=== PATIENT | male | born 1955 | race Caucasian/White ===

== ENCOUNTER 2023-05-14 14:34 | Outpatient (AMB) | payer OTHER, SELFPAY ==
[2023-05-14 14:37] VITALS: BP 128/80; PULSE 93; O2SAT 97; BMI 27.8
--- NOTE | 2023-05-14 14:37 | MHC.OFFVIS ---
Intake Vital Signs 05/14/23 14:37 Height 5 ft 6 in Weight 172 lb 6 oz BMI 27.8 BP 128/80 Blood Pressure Location Rt brachial Position Sitting Pulse 93 Pulse Source Pulse Oximeter Pulse Oximetry (%) 97 Oxygen Delivery Method Room Air Intake Visit Reasons: NPV-Subdural Hematoma-confirmed Intake Note: Pt presents to the office today for a new patient visit for subdural Hematoma. Pt states he has episodes where he gets dry mouth, dizzy, disoriented,and short of breath.Pt is afraid of falling. He states he gets migrains and when he gets them he slurs his words. He also states he has cerebellum ataxia. Allergies No Known Allergies Allergy (Verified 05/14/23 14:39) HPI HPI Comments History of Present Illness Details 67y/o male with h/o cerebellar ataxia - diagnosed at age 1 , comes for neurology evaluation following a Subdural hematoma. He was followed up with neurologist all his life for his ataxia.He move [facility] about 8 years ago from [place] and has been seeing Dr. Strickland . He has h/o migraines for many years. He is on topirmate which helps his migraines. He had a MRI in Sep 2022 for increasing headaches and his cerebellar ataxia. It showed a subdural hematoma - he had right sided burrhole and evacuation done at [facility]. He was also started on Keppra 500mg bid. He reports persistent migraines, daily headaches, slurred speech, dizziness,vertigo tremors, ataxia . The headaches start in his neck and radiates to frontal, nausea, vomiting, photophobia, phonophobia, ? visual aura etc. He takes imitrex which helps.He has also tried rizatriptan, fioricet .He was also tried on baclofen and other muscle relaxants. He was also tried on gabapentin in the past with no response. Metoprolol was tried with no response. It can last 1-2 days .He reports migraines almost every day. He says he was tried on multiple medications.He ernst shad occipital nerve block which did not help. He was also seen by Dr. Guy in the past. [facility] Medical History Angina of effort Anxiety Bipolar 2 disorder BPH (benign prostatic hyperplasia) Carpal tunnel syndrome Cerebellar ataxia Cervicalgia Chronic migraine without aura CKD (chronic kidney disease) COPD (chronic obstructive pulmonary disease) Diabetes Diabetic neuropathy GERD (gastroesophageal reflux disease) GI bleed Glaucoma Hyperlipidemia Hypothyroidism Lumbar spondylosis Malignant melanoma Meniere disease Neurogenic claudication YUSRA and COPD overlap syndrome Osteoporosis PTSD (post-traumatic stress disorder) Schizoaffective disorder Spinal stenosis in cervical region Subdural hematoma, chronic Surgical History History of total right knee replacement Family History Mother Breast cancer Skin cancer Father Skin cancer Social History Household Members: Other Caregiver staying overnight: No Housing: Assisted Living Facility Do you presently have visiting nurse or other home services: Yes Alcohol intake: never Patient Tobacco Use Status: Never used Tobacco Review of Systems Neuro Reports Abnormal speech present Physical Exam Vital Signs: Last Vital Signs Pulse 93 05/14/23 14:37 BP 128/80 05/14/23 14:37 Pulse Ox 97 05/14/23 14:37 Oxygen Delivery Method Room Air 05/14/23 14:37 BMI result Body Mass Index 27.8 Const Orientation/consciousness: patient oriented x3 Eyes Pupils: Equal, round and reactive pupils present Neuro Other: slurred speech gait- off balance , ataxic with walker , weakness of lower extremities Neck- restricted range of motion with tightness in amos cervical muscles. General: patient oriented x3 and moves all extremities Cranial nerves: Yes Facial sensation intact/muscles of mastication intact, Yes Equal, round and reactive pupils present, Yes Bilaterally intact EOM present, Yes Nystagmus not present, Yes Normal facial strength present, Yes Midline tongue present and Yes Ability to bilaterally elevate shoulders present Speech: Abnormal speech present and Other speech findings present (Neuro) (dysarthria) Gait exam (Neuro): Ataxic gait present Deep tendon reflexes (DTR's): Right triceps reflex intensity grade: 1+, Left triceps reflex intensity grade: 1+, Rt Biceps (C5, C6): 1+, Left biceps reflex intensity grade: 1+, Right brachioradialis reflex intensity grade: 1+, Left brachioradialis reflex intensity grade: 1+, Right patellar reflex intensity grade: 3+ and Left patellar reflex intensity grade: 3+ Coordination: other (dysmetria amos ) Assessment & Plan Assessment & Plan (1) Chronic migraine without aura: Code(s): G43.709 - Chronic migraine without aura, not intractable, without status migrainosus (2) Cervicalgia: Code(s): M54.2 - Cervicalgia (3) Subdural hematoma, chronic: Code(s): I62.03 - Nontraumatic chronic subdural hemorrhage Orders: Orders MR head/brain wo con 05/14/23 I62.00 - Nontraumatic subdural hemorrhage, unspecified MR cervical spine wo con 05/14/23 R26.9 - Unspecified abnormalities of gait and mobility Medications: New rimegepant (Nurtec ODT) 75 mg PO Q OTHER DAY 15 tabs 2RF Coding Level of Care Code New Pt Level 4 (57357) Diagnoses Chronic migraine without aura G43.709 Cervicalgia M54.2 Subdural hematoma, chronic I62.03
== END 2023-05-14 15:33 | disposition home or self-care (01) ==
PROVIDERS: Visit Provider Psychiatry & Neurology Neurology
DX: G43.709 Chronic migraine without aura, not intractable, without status migrainosus (principal); M54.2 Cervicalgia; I62.03 Nontraumatic chronic subdural hemorrhage
CPT/HCPCS: 99204

== ENCOUNTER → 2023-05-14 14:34 | Outpatient (BNVA) | payer OTHER, SELFPAY | PROVIDERS: Visit Provider Psychiatry & Neurology Neurology | DX: I62.03 Nontraumatic chronic subdural hemorrhage (principal); G43.709 Chronic migraine without aura, not intractable, without status migrainosus; M54.2 Cervicalgia | CPT/HCPCS: 99202 ==

== ENCOUNTER 2023-10-15 11:26 | Outpatient (AMB) | payer OTHER, SELFPAY ==
--- NOTE | 2023-10-15 11:28 | A.OFFVIS_ITS ---
Intake Vital Signs 3 10/15/23 11:34 Height 5 ft 6 in Weight 170 lb 2 oz BMI 27.5 BP 138/77 Blood Pressure Location Rt brachial Position Sitting Pulse 83 Pulse Source Pulse Oximeter Pulse Oximetry (%) 96 Oxygen Delivery Method Room Air Intake Visit Reasons: Cervicalgia Intake Note: Pain today 06/26 Paper Maker Required: No Accompanied by: Self / Same As Patient Allergies No Known Allergies Allergy (Verified 10/15/23 11:35) HPI Cervicalgia 2 HPI0 Details Patient is a pleasant 68 years old male with complex medical and mental health history, including cerebellar ataxia (diagnosed at age 1), subdural hematoma 2022 [place] [facility] diabetes, diabetic neuropathy, chronic migraine headaches, vertigo, slurred speech, memory impairments, cervical spinal stenosis and arthritis, presents today for initial evaluation of chronic neck pain. Patient reports worsening neck pain with radiation to both shoulders and into his arm and hands with intermittent numbness and tingling in his hands, worse on the right side. Left lateral rotation and flexion increases his right sided neck pain and causes significant muscle stiffness and spasms, whereas cervical extension causes him dizziness, pain, disorientation and shooting pain into his right shoulder and right arm and hand. Patient was referred to us by our Neurology group. Most recent cervical spine MRI 05/2023 showed multiple degenerative changes throughout the cervical spine most pronounced at C6-C7 where there is a moderate spinal canal stenosis. No cord signal abnormality. Severe foraminal stenosis on the right at C4-C5, bilaterally at C5-C6 and on the left at C6-C7 secondary to facet arthropathy and uncovertebral spurring. Patient reports he moved from [place] to [place] about 9 years ago and has been seeing Dr. Strickland for migraines and cerebellar ataxia. He has been in multiple courses of physical therapy for the past 9 years. Patient reports he was recommended by providers at our [facility] to undergo course of PT prior to surgical discussion. He states new course PT at his Assisted Living residence at [facility]. Patient reports back injections in [place] with various benefit. Patient is hesitant towards interventional treatments at this time and is interested in Acupuncture referral. Patient reports massaging right sided neck pain and applying pressure partially alleviates his pain. Denies any fever, chills, weight loss, bladder or bowel dysfunction or saddle anesthesia. Ambulates with ataxic gait with use of walker. Location Neck pain, worse on the right side, radiates to both shoulder Duration Chronic pain most of patient's life Characteristics of symptom or complaint Headaches, numbness, throbbing, spasming, shooting, radiating, stiffness Aggravating or associated factors Movements, walking, cold weather, stress, illness Relieving factors Massage, accupressure, Imitrex, Tylenol, oxycodone Treatment Multiple PT, back injections, occipital nerve blocks PFSH Medical History Glaucoma Neurogenic claudication Spinal stenosis in cervical region Osteoporosis YUSRA and COPD overlap syndrome Diabetic neuropathy Meniere disease COPD (chronic obstructive pulmonary disease) Hypothyroidism Hyperlipidemia Malignant melanoma GERD (gastroesophageal reflux disease) GI bleed Lumbar spondylosis Diabetes CKD (chronic kidney disease) Cerebellar ataxia Carpal tunnel syndrome BPH (benign prostatic hyperplasia) PTSD (post-traumatic stress disorder) Schizoaffective disorder Bipolar 2 disorder Angina of effort Anxiety Subdural hematoma, chronic Cervicalgia Chronic migraine without aura Surgical History History of total right knee replacement Family History Mother Breast cancer Skin cancer Father Skin cancer Social History Household Members: Other Caregiver staying overnight: No Housing: Assisted Living Facility Do you presently have visiting nurse or other home services: Yes Alcohol intake: never Patient Tobacco Use Status: Never used Tobacco Review of Systems Const All systems reviewed & are unremarkable except as noted in HPI and below Reports as per HPI, Denies body aches, Denies chills, Reports difficulty sleeping, Denies fever(s), Reports headache(s), Denies malaise, Denies night sweats and Reports weakness ENT Reports vertigo, Reports dizziness, Reports headache(s), Reports neck pain, Denies sinus pain and Denies sore throat Musc Reports as per HPI, Reports back pain, Reports arthralgias, Reports neck pain, Reports numbness, Reports radiating pain into limb, Reports stiffness and Reports tingling Neuro Reports Neuro-related abnormal movements (cerebellar ataxia), Reports burning sensations, Reports confusion, Reports vertigo, Reports dizziness, Reports headache(s), Reports numbness, Reports radicular pain, Reports tingling, Reports paresthesias and Reports weakness Psych Reports confusion, Denies panic attacks, Denies visual hallucinations, Denies tactile hallucinations, Denies homicidal ideation and Denies suicidal ideation Physical Exam Vital Signs: Last Vital Signs Pulse 83 10/15/23 11:34 BP 138/77 10/15/23 11:34 Pulse Ox 96 10/15/23 11:34 Oxygen Delivery Method Room Air 10/15/23 11:34 BMI result Body Mass Index 27.5 General: Appears afebrile. Alert and oriented. Mood and affect appropriate. Dysarthria Follows and participates in conversation appropriately. Respiratory effort is unlabored. No cough. Able to transition from sit to stand, ataxic gait. Uses walker with seat. Const General: confusion Orientation/consciousness: confusion Neck Other: Patient with decreased cervical ROM in all planes/especially with left lateral rotation which increases his right sided neck pain. Reports increased pain with cervical extension and flexion. Spurling compression test equivocal. Pain is unchanged by Spurling maneuver with retraction. Elvey's tension test positive bilaterally, with radiation of pain from neck to wrist and hand on the right. Lhermitte's test was negative. DTR intact, +1 and symmetrical. Patient demonstrated 5/5 motor strength of bilateral upper extremities. 2 + radial pulses. No paravertebral tenderness over facet joint on affected side Neck: Yes no lymphadenopathy, Yes supple, No anterior neck swelling, Yes no JVD and No prominent dorsocervical fat pad Back/Spine/Pelvis Cervical Spine: No Lhermitte's sign positive, loss of normal cervical lordosis, cervical muscular tenderness, pain with cervical ROM, No Cervical spine scars present, cervical spasm and No Cervical spine tenderness Thoracic/Lumbar Spine: thoracic and lumbar spine normal to inspection, thoraco- lumbar ROM limited, No thoracic spinal tenderness and No lumbar spinal tenderness Neuro General: moves all extremities, Normal light touch and pain sensation and confusion Gait exam (Neuro): Ataxic gait present and Assistive device used Motor exam (neuro): no tremor noted Results Reviewed Results Reviewed: Assessment & Plan Assessment & Plan (1) Spinal stenosis in cervical region: Code(s): M48.02 - Spinal stenosis, cervical region (2) Cervicalgia: Code(s): M54.2 - Cervicalgia (3) Cervical spondylosis: Code(s): M47.812 - Spondylosis without myelopathy or radiculopathy, cervical region (4) Muscle spasms of neck: Code(s): M62.838 - Other muscle spasm Plan 1. Patient is starting PT and home exercise program for neck pain with radicular symptoms. This is being set up at his Assisted Living place by [employer]. If no relief, he will follow up with [facility] for cervical spinal stenosis related pain. 2. Discussed interventional treatments for facetogenic neck pain. Patient is not candidate for Sprint PNS trial due to his complex medical conditions as well as memory impairments. He is interested in Acupuncture Referral prior to injections for potential RFA procedure. Script provided. All questions and concerns have been answered and patient agreed with the plan. Follow up as needed. Orders: Referrals 2 Neurosurgery Referral M48.02 - Spinal stenosis, cervical region Acupuncture Referral M47.812 - Spondylosis without myelopathy or radiculopathy, cervical region, M48.02 - Spinal stenosis, cervical region, M54.2 - Cervicalgia, M62.838 - Other muscle spasm Medications: New 2 camphor-methyl salicyl-menthol 3.1-15-10 % (Salonpas Deep Relieving) 1 ea topical DAILY 30 days 78 grams 2RF pain M47.812 - Spondylosis without myelopathy or radiculopathy, cervical region, M48.02 - Spinal stenosis, cervical region, M62.838 - Other muscle spasm Coding Level of Care Code New Pt Level 4 (88950) Diagnoses Spinal stenosis in cervical region M48.02 Cervicalgia M54.2 Cervical spondylosis M47.812 Muscle spasms of neck M62.838
[2023-10-15 11:34] VITALS: BP 138/77; PULSE 83; O2SAT 96; BMI 27.5
== END 2023-10-15 12:09 | disposition home or self-care (01) ==
PROVIDERS: PCP Internal Medicine Rheumatology; Visit Provider Nurse Practitioner Family
DX: M48.02 Spinal stenosis, cervical region (principal); M54.2 Cervicalgia; M47.812 Spondylosis without myelopathy or radiculopathy, cervical region; M62.838 Other muscle spasm
CPT/HCPCS: 99204

== ENCOUNTER → 2023-10-15 11:26 | Outpatient (BNVA) | payer OTHER, SELFPAY | PROVIDERS: PCP Internal Medicine Rheumatology; Visit Provider Nurse Practitioner Family | DX: M48.02 Spinal stenosis, cervical region (principal); M54.2 Cervicalgia; M47.812 Spondylosis without myelopathy or radiculopathy, cervical region; M62.838 Other muscle spasm | CPT/HCPCS: 99202 ==

== ENCOUNTER 2023-11-09 10:40 | Outpatient (AMB) | payer OTHER, SELFPAY ==
--- NOTE | 2023-11-09 11:14 | A.SPINEOV_ITS ---
Intake Intake Visit Reasons: spinal stenosis Intake Note: Mr. Mcconnell is here today c/o neck pain. MRI done at [facility]. Principal Network Engineer Required: No Allergies No Known Allergies Allergy (Verified 10/15/23 11:35) Assessment & Plan Assessment & Plan (1) Cervical spondylosis: Code(s): M47.812 - Spondylosis without myelopathy or radiculopathy, cervical region (2) Muscle spasms of neck: Code(s): M62.838 - Other muscle spasm Plan Dear Maribell, Thank you for referring MR Mcconnell to our office today. He has a 68-year-old gentleman with a history of chronic neck pain. Recently evaluated at the [facility] in September of this year and felt not to be a surgical candidate. His main complaints are centralized neck pain on the upper cervical region to the right side of the neck. Also will complain of intermittent arm pains bilaterally worse on the right. He is not a great historian and has a lot of difficulty giving me details about things that have gone on related to his neck. At some point he was living in [place] and underwent injections. He has not sure if these really did much. He takes Tylenol 3 times a day but is very forgetful about his medications so he has not sure what he is taking right now. He has a history of physical therapy and chiropractic but did not report that these things did much. Does report that the pain to me disabling at times making his right arm difficult to move. He also reports overlapping history of neuropathy in his arms as well. He was sent today for evaluation with an MRI showing multilevel degenerative disc disease. PMH: I was able to look at his [place] health records, he has an extensive history including carotid artery aneurysm, hypertension, hypertension, hypothyroidism, type 2 diabetes. He has no recent A1c and can not recall what his most recent numbers were. The last time it was done was a few years ago he tells me. History of diabetic neuropathy, GERD, irritable bowel syndrome, diverticulosis, sleep apnea, bipolar, subdural hematoma with craniotomy evacuation last year, Meniere's disease, allergic rhinitis, pulmonary nodules, melanoma, GI bleed, cerebellar ataxia Social hx: He does not smoke, denies any use of drugs or alcohol Medications: A list found in the [employer] system includes Actos, Flomax, Seroquel, Vasotec, Glucophage, Proscar, Topamax, Trileptal, albuterol, denosumab injection, lisinopril, pantoprazole, Flomax, Keppra, Tylenol, Lipitor, Synthroid , meclizine, dicyclomine, iron Allergies: No drug allergies reported Physical exam: He is in a wheelchair, he tells me this is due to cerebellar ataxia which he has had is a and has had difficulty walking steadily through the years. No recent changes with this. He is able to demonstrate good strength of bilateral upper extremities with absent reflexes bilaterally, no Downs's sign. Imaging review: He has a cervical MRI done at [facility] about 6 or 7 months ago showing multilevel degenerative disc disease with varying degrees of foraminal stenosis throughout the cervical spine. No cord compression. Impression: 60-year-old male diabetic with chronic neck pain on the upper cervical area on the right side with intermittent arm pains which can be disabling at times. Has multilevel degenerative disc disease with foraminal narrowing at multiple levels of the cervical spine including C5-6 and C6-7. The patient was just seen about a month ago at [facility] in Dr.Mc Valverde office and not felt to be a surgical candidate. His main complaint is neck pain and given that he has multilevel degenerative disc disease these patients are the hardest to treat surgically as it is difficult to know where the symptoms are coming from. He does have a component of arm pain which is more helpful in localizing some of the symptoms to C5-6 C6-7 area, but I would be very cautious about pursuing surgery with this gentleman given his host of medical problems and the lack of clarity with where he stands with regard to his A1c in his overall medical health. He has not a great historian. I would like to get a repeat MRI as his current 1 is 6-month-old and would be helpful to know if anything is changing. I would also like to know where he had the injections don e in [place] so we can be clear what treatment has already been done. Obviously would be a much simpler to try to treat this non operatively with things like injections etc.. Once he has the repeat MRI done, he is going to find out where he had the injections done and we can get those records and see him back. Thank you for allowing us to care for your patient. The total time spent with this visit with this patient was 45 minutes reviewing history, physical exam, cervical MRI imaging review, and implementation of treatment plan or further diagnostic testing Freddy Patiño MD,PhD [facility] Coding Level of Care Code New Pt Level 4 (36929) Diagnoses Cervical spondylosis M47.812 Muscle spasms of neck M62.838
== END 2023-11-09 11:38 | disposition home or self-care (01) ==
PROVIDERS: PCP Internal Medicine Rheumatology; Referring Provider Nurse Practitioner Family; Visit Provider Physician Assistant
DX: M47.812 Spondylosis without myelopathy or radiculopathy, cervical region (principal); M62.838 Other muscle spasm
CPT/HCPCS: 99204

== ENCOUNTER → 2023-11-09 10:40 | Outpatient (BNVA) | payer OTHER, SELFPAY | PROVIDERS: PCP Internal Medicine Rheumatology; Visit Provider Physician Assistant | DX: M47.812 Spondylosis without myelopathy or radiculopathy, cervical region (principal); M62.838 Other muscle spasm | CPT/HCPCS: 99202 ==

== ENCOUNTER 2024-01-08 16:06 | Outpatient (AMB) | payer OTHER, SELFPAY ==
--- NOTE | 2024-01-08 16:17 | MHC.OFFVIS ---
Vital Signs 01/08/24 16:18 Height 5 ft 6 in Weight 164 lb 6 oz BMI 26.5 BP 130/78 Blood Pressure Location Rt brachial Position Sitting Respiration 16 Pulse 72 Pulse Source Palpation Intake Visit Reasons: f/u for Subdural Hematoma- CONF Intake Note: Pt presents for 8 month follow up for subdural hematoma. Net Web Application Developer Required: No Allergies No Known Allergies Allergy (Verified 01/08/24 16:18) PFS Medical History Glaucoma Neurogenic claudication Spinal stenosis in cervical region Osteoporosis YUSRA and COPD overlap syndrome Diabetic neuropathy Meniere disease COPD (chronic obstructive pulmonary disease) Hypothyroidism Hyperlipidemia Malignant melanoma GERD (gastroesophageal reflux disease) GI bleed Lumbar spondylosis Diabetes CKD (chronic kidney disease) Cerebellar ataxia Carpal tunnel syndrome BPH (benign prostatic hyperplasia) PTSD (post-traumatic stress disorder) Schizoaffective disorder Bipolar 2 disorder Angina of effort Anxiety Subdural hematoma, chronic Cervicalgia Chronic migraine without aura Surgical History History of total right knee replacement Family History Mother Breast cancer Skin cancer Father Skin cancer Social History Household Members: Other Caregiver staying overnight: No Housing: Assisted Living Facility Do you presently have visiting nurse or other home services: Yes Alcohol intake: never Patient Tobacco Use Status: Never used Tobacco Coding
[2024-01-08 16:18] VITALS: BP 130/78; PULSE 72; RESP 16; BMI 26.5
--- NOTE | 2024-01-08 16:24 | MHC.OFFVIS ---
Vital Signs 01/08/24 16:18 01/08/24 16:27 Height 5 ft 6 in Weight 164 lb 6 oz BMI 26.5 26.5 BP 130/78 Blood Pressure Location Rt brachial Position Sitting Respiration 16 Pulse 72 Pulse Source Palpation Intake Visit Reasons: f/u for Subdural Hematoma- CONF Allergies No Known Allergies Allergy (Verified 01/08/24 16:18) Medication List - Last Reconciled 01/08/24 by Heavenly Fleming MD acetaminophen (Tylenol Extra Strength) 1,000 mg PO TID PRN albuterol sulfate 90 mcg/actuation 3 inhalations inhalation .q1-3 atorvastatin 40 mg PO DAILY camphor-methyl salicyl-menthol 3.1-15-10 % (Salonpas Deep Relieving) 1 ea topical DAILY 30 days cholecalciferol (vitamin D3) 10 mcg PO DAILY cyanocobalamin (vitamin B-12) 1,000 mcg PO DAILY denosumab (Prolia) 60 mg subcut [id number] dicyclomine 10 mg PO TID ferrous gluconate 324 mg PO DAILY finasteride 5 mg PO DAILY vspssxxulcw-fiqlpobsa-wgdzdiiq 100-62.5-25 mcg (Trelegy Ellipta) 1 inh inhalation DAILY latanoprost 0.005% 1 drp ophthalmic (eye) DAILY levetiracetam 500 mg PO Q12H levothyroxine 25 mcg PO DAILY lisinopril 20 mg PO DAILY magnesium oxide 400 mg PO DAILY meclizine 12.5 mg PO TID PRN metformin 1,000 mg PO BID oxcarbazepine 150 mg PO DAILY pantoprazole 40 mg PO BID pioglitazone 30 mg PO DAILY promethazine 12.5 mg PO BID quetiapine 300 mg PO BEDTIME rimegepant (Nurtec ODT) 75 mg PO Q OTHER DAY tamsulosin 0.4 mg PO BEDTIME topiramate 200 mg PO BEDTIME trazodone 50 mg PO BEDTIME PRN venlafaxine ER 150 mg PO DAILY HPI Comments Details: 68y/o male with h/o cerebellar ataxia - diagnosed at age 1 , comes for follow up. He was followed up with neurologist all his life for his ataxia.He moved to [place] about 8 years ago from [place] and has been seeing Dr. Strickland . He has h/o migraines for many years.His migraines have decreased to 1-2 /week and responds to imitrex. He is on topiramate which helps his migraines. He had a MRI in Sep 2022 for increasing headaches and his cerebellar ataxia. It showed a subdural hematoma - he had right sided burrhole and evacuation done at [facility]. He was also started on Keppra 500mg bid. The headaches start in his neck and radiates to frontal, nausea, vomiting, photophobia, phonophobia, ? visual aura etc. He had a MRI in Sep 2022 for increasing headaches and his cerebellar ataxia. It showed a subdural hematoma - he had right sided burrhole and evacuation done at [facility]. He was also started on Keppra 500mg bid. He was seen by Neuro spine for cervical spondylosis and Dr. Parks- not a surgical candidate He did not bring his medication list and i am unclear if he is on levetiracetam [facility] Medical History Glaucoma Neurogenic claudication Spinal stenosis in cervical region Osteoporosis YUSRA and COPD overlap syndrome Diabetic neuropathy Meniere disease COPD (chronic obstructive pulmonary disease) Hypothyroidism Hyperlipidemia Malignant melanoma GERD (gastroesophageal reflux disease) GI bleed Lumbar spondylosis Diabetes CKD (chronic kidney disease) Cerebellar ataxia Carpal tunnel syndrome BPH (benign prostatic hyperplasia) PTSD (post-traumatic stress disorder) Schizoaffective disorder Bipolar 2 disorder Angina of effort Anxiety Subdural hematoma, chronic Cervicalgia Chronic migraine without aura Surgical History History of total right knee replacement Family History Mother Breast cancer Skin cancer Father Skin cancer Social History Household Members: Other Caregiver staying overnight: No Housing: Assisted Living Facility Do you presently have visiting nurse or other home services: Yes Alcohol intake: never Patient Tobacco Use Status: Never used Tobacco Review of Systems Neuro Reports Abnormal speech present Physical Exam Vital Signs: Last Vital Signs Pulse 72 01/08/24 16:18 Resp 16 01/08/24 16:18 BP 130/78 01/08/24 16:18 BMI result Body Mass Index 26.5 Const Orientation/consciousness: patient oriented x3 Eyes Pupils: Equal, round and reactive pupils present Neuro Other: slurred speech gait- off balance , ataxic with walker , weakness of lower extremities Neck- restricted range of motion with tightness in amos cervical muscles. General: patient oriented x3 and moves all extremities Cranial nerves: Yes Facial sensation intact/muscles of mastication intact, Yes Equal, round and reactive pupils present, Yes Bilaterally intact EOM present, Yes Nystagmus not present, Yes Normal facial strength present, Yes Midline tongue present and Yes Ability to bilaterally elevate shoulders present Speech: Abnormal speech present and Other speech findings present (Neuro) (dysarthria) Gait exam (Neuro): Ataxic gait present Coordination: other (dysmetria amos ) Assessment & Plan Assessment & Plan (1) Chronic migraine without aura: Comment: stable now Code(s): G43.709 - Chronic migraine without aura, not intractable, without status migrainosus Category: Medical (2) Cervicalgia: Comment: related to cervical spondylosis Code(s): M54.2 - Cervicalgia Category: Medical (3) Subdural hematoma, chronic: Comment: resolved Code(s): I62.03 - Nontraumatic chronic subdural hemorrhage Category: Medical Plan Continue imitrex- he call me with his updated med list Continue topiramate 200mg qhs It is unclear if he is on keppra - i will obtain his updated list- stop keppra which was added prophylactically for SDH. Coding Level of Care Code New Pt Level 4 (70279) Diagnoses Chronic migraine without aura G43.709 Cervicalgia M54.2 Subdural hematoma, chronic I62.03
[2024-01-08 16:27] VITALS: BMI 26.5
== END 2024-01-08 16:38 | disposition home or self-care (01) ==
PROVIDERS: PCP Internal Medicine Rheumatology; Visit Provider Psychiatry & Neurology Neurology
DX: G43.709 Chronic migraine without aura, not intractable, without status migrainosus (principal); M54.2 Cervicalgia; I62.03 Nontraumatic chronic subdural hemorrhage
CPT/HCPCS: 99214

== ENCOUNTER → 2024-01-08 16:06 | Outpatient (BNVA) | payer OTHER, SELFPAY | PROVIDERS: PCP Internal Medicine Rheumatology; Visit Provider Psychiatry & Neurology Neurology | DX: G43.709 Chronic migraine without aura, not intractable, without status migrainosus (principal); M54.2 Cervicalgia; I62.03 Nontraumatic chronic subdural hemorrhage | CPT/HCPCS: 99212 ==

== ENCOUNTER 2024-06-17 08:27 | Outpatient (AMB) | payer OTHER, SELFPAY ==
--- NOTE | 2024-06-17 08:33 | A.OFFVIS_ITS ---
Vital Signs 06/17/24 08:34 Height 5 ft 6 in Weight 165 lb 6 oz BMI 26.7 BP 110/70 Blood Pressure Location Rt brachial Position Sitting Respiration 16 Pulse 89 Pulse Source Pulse Oximeter Pulse Oximetry (%) 99 Oxygen Delivery Method Room Air Intake Visit Reasons: Follow up Intake Note: Pt presents tot he office for a 6 month follow up for subdural hematoma. Senior Program Manager Required: No Allergies No Known Allergies Allergy (Verified 06/17/24 08:33) Medication List - Last Reconciled 06/17/24 by Heavenly Fleming MD acetaminophen (Tylenol Extra Strength) 1,000 mg PO TID PRN albuterol sulfate 90 mcg/actuation 3 inhalations inhalation .q1-3 atorvastatin 40 mg PO DAILY camphor-methyl salicyl-menthol 3.1-15-10 % (Salonpas Deep Relieving) 1 ea topi keith DAILY 30 days cholecalciferol (vitamin D3) 10 mcg PO DAILY cyanocobalamin (vitamin B-12) 1,000 mcg PO DAILY denosumab (Prolia) 60 mg subcut [id number] dicyclomine 10 mg PO TID ferrous gluconate 324 mg PO DAILY finasteride 5 mg PO DAILY mlezjbvnbss-momjeblgl-huiwuybr 100-62.5-25 mcg (Trelegy Ellipta) 1 inh inhalation DAILY latanoprost 0.005% 1 drp ophthalmic (eye) DAILY levetiracetam 500 mg PO Q12H levothyroxine 25 mcg PO DAILY lisinopril 20 mg PO DAILY magnesium oxide 400 mg PO DAILY meclizine 12.5 mg PO TID PRN metformin 1,000 mg PO BID oxcarbazepine 150 mg PO DAILY pantoprazole 40 mg PO BID pioglitazone 30 mg PO DAILY promethazine 12.5 mg PO BID quetiapine 300 mg PO BEDTIME tamsulosin 0.4 mg PO BEDTIME topiramate 200 mg PO BEDTIME trazodone 50 mg PO BEDTIME PRN venlafaxine ER 150 mg PO DAILY HPI Comments Details: 68y/o male with h/o cerebellar ataxia - diagnosed at age 1 , comes for follow up. He came alone for the visit today . He says he has brain fog and is not able to provide history today.He has multiple falls and is concerned about a rebleed. He reports daily headaches History from initial visit-He was followed up with neurologist all his life for his ataxia.He moved to [place] about 8 years ago from [place] and has been seeing Dr. Strickland . He has h/o migraines for many years.His migraines have decreased to 1-2 /week and responds to imitrex. He is on topiramate which helps his migraines. He had a MRI in Sep 2022 for increasing headaches and his cerebellar ataxia. It showed a subdural hematoma - he had right sided burrhole and evacuation done at [facility]. He was also started on Keppra 500mg bid. The headaches start in his neck and radiates to frontal, nausea, vomiting, photophobia, phonophobia, ? visual aura etc. He was seen by Neuro spine for cervical spondylosis and Dr. Parks- not a surgical candidate He did not bring his medication list and i am unclear if he is on levetiracetam [facility] Medical History Glaucoma Neurogenic claudication Spinal stenosis in cervical region Osteoporosis YUSRA and COPD overlap syndrome Diabetic neuropathy Meniere disease COPD (chronic obstructive pulmonary disease) Hypothyroidism Hyperlipidemia Malignant melanoma GERD (gastroesophageal reflux disease) GI bleed Lumbar spondylosis Diabetes CKD (chronic kidney disease) Cerebellar ataxia Carpal tunnel syndrome BPH (benign prostatic hyperplasia) PTSD (post-traumatic stress disorder) Schizoaffective disorder Bipolar 2 disorder Angina of effort Anxiety Subdural hematoma, chronic Cervicalgia Chronic migraine without aura Surgical History History of total right knee replacement Family History Mother Breast cancer Skin cancer Father Skin cancer Social History Household Members: Other Caregiver staying overnight: No Housing: Assisted Living Facility Do you presently have visiting nurse or other home services: Yes Alcohol intake: never Patient Tobacco Use Status: Never used Tobacco Review of Systems Neuro Reports Abnormal speech present Physical Exam Vital Signs: Last Vital Signs Pulse 89 06/17/24 08:34 Resp 16 06/17/24 08:34 BP 110/70 06/17/24 08:34 Pulse Ox 99 10/01/24 08:34 Oxygen Delivery Method Room Air 10/01/24 08:34 BMI result Body Mass Index 26.7 Const Orientation/consciousness: patient oriented x3 Eyes Pupils: Equal, round and reactive pupils present Neuro Other: slurred speech gait- off balance , ataxic with walker , weakness of lower extremities Neck- restricted range of motion with tightness in amos cervical muscles. General: patient oriented x3 and moves all extremities Cranial nerves: Yes Facial sensation intact/muscles of mastication intact, Yes Equal, round and reactive pupils present, Yes Bilaterally intact EOM present, Yes Nystagmus not present, Yes Normal facial strength present, Yes Midline t ongue present and Yes Ability to bilaterally elevate shoulders present Speech: Abnormal speech present and Other speech findings present (Neuro) (dysarthria) Gait exam (Neuro): Ataxic gait present Coordination: other (dysmetria amos ) Assessment & Plan Assessment & Plan (1) Chronic migraine without aura: Code(s): G43.709 - Chronic migraine without aura, not intractable, without status migrainosus Category: Medical Qualifiers: Status migrainosus presence: without status migrainosus Intractability: intractable Qualified Code(s): G43.719 - Chronic migraine without aura, intractable, without status migrainosus (2) Cervicalgia: Comment: related to cervical spondylosis Code(s): M54.2 - Cervicalgia Category: Medical (3) Subdural hematoma, chronic: Comment: resolved Code(s): I62.03 - Nontraumatic chronic subdural hemorrhage Category: Medical Plan Continue imitrex- he call me with his updated med list Continue topiramate 200mg qhs continue levetiracetam 500mg bid MRI brain - urgent to r/o rebleed . Patient reports increased headaches and multiple falls due to ataxia Orders: Orders MR head/brain wo con Today S06.5XAA - Traumatic subdural hemorrhage with loss of consciousness status unknown, initial encounter Coding Level of Care Code Est Pt Level 4 (92308) Complex EM visit Add On G2211 Diagnoses Intractable chronic migraine without aura and without status migrainosus G43.719 Status migrainosus presence: without status migrainosus Intractability: intractable Cervicalgia M54.2 Subdural hematoma, chronic I62.03
[2024-06-17 08:34] VITALS: BP 110/70; PULSE 89; RESP 16; O2SAT 99; BMI 26.7
== END 2024-06-17 09:05 | disposition home or self-care (01) ==
PROVIDERS: PCP Internal Medicine Rheumatology; Visit Provider Psychiatry & Neurology Neurology
DX: G43.719 Chronic migraine without aura, intractable, without status migrainosus (principal); M54.2 Cervicalgia; I62.03 Nontraumatic chronic subdural hemorrhage
CPT/HCPCS: 99214; G2211

== ENCOUNTER → 2024-06-17 08:27 | Outpatient (BNVA) | payer OTHER, SELFPAY | PROVIDERS: PCP Internal Medicine Rheumatology; Visit Provider Psychiatry & Neurology Neurology | DX: G43.719 Chronic migraine without aura, intractable, without status migrainosus (principal); M54.2 Cervicalgia; I62.03 Nontraumatic chronic subdural hemorrhage | CPT/HCPCS: 99212 ==

== ENCOUNTER 2025-04-28 13:30 | Outpatient (AMB) | payer OTHER, SELFPAY ==
[2025-04-28 13:33] VITALS: BP 106/70; PULSE 81; O2SAT 96
--- NOTE | 2025-04-28 13:33 | A.OFFVIS_ITS ---
Vital Signs 04/28/25 13:33 Height 5 ft 6 in BP 106/70 Blood Pressure Location Rt brachial Position Sitting Pulse 81 Pulse Source Pulse Oximeter Pulse Oximetry (%) 96 Oxygen Delivery Method Room Air Intake Visit Reasons: 1 yr follow up (Ins Auth is attached) Intake Note: Follow up care Merchandising Coordinator Required: No Accompanied by: Self / Same As Patient Allergies No Known Allergies Allergy (Verified 04/28/25 13:37) Medication List - Last Reconciled 04/28/25 by Heavenly Fleming MD acetaminophen (Tylenol Extra Strength) 1,000 mg PO TID PRN albuterol sulfate 90 mcg/actuation 3 inhalations inhalation .q1-3 atorvastatin 40 mg PO DAILY camphor-methyl salicyl-menthol 3.1-15-10 % (Salonpas Deep Relieving) 1 ea topical DAILY 30 days cholecalciferol (vitamin D3) 10 mcg PO DAILY cyanocobalamin (vitamin B-12) 1,000 mcg PO DAILY denosumab (Prolia) 60 mg subcut [id number] dicyclomine 10 mg PO TID ferrous gluconate 324 mg PO DAILY finasteride 5 mg PO DAILY zyytkamffgz-xmivqchpb-dihbkuhx 100-62.5-25 mcg (Trelegy Ellipta) 1 inh inhalation DAILY levetiracetam 500 mg PO Q12H levothyroxine 25 mcg PO DAILY lisinopril 20 mg PO DAILY magnesium oxide 400 mg PO DAILY meclizine 12.5 mg PO TID PRN metformin 1,000 mg PO BID oxcarbazepine 150 mg PO DAILY pantoprazole 40 mg PO BID pioglitazone 30 mg PO DAILY promethazine 12.5 mg PO BID quetiapine 300 mg PO BEDTIME sumatriptan succinate take 1 tab at onset of headache; if no relief, may repeat 1 tab after at least 2 hrs; max = 2 tabs/24 hrs PO tamsulosin 0.4 mg PO BEDTIME topiramate 200 mg PO BEDTIME trazodone 50 mg PO BEDTIME PRN ubrogepant (Ubrelvy) 100 mg orally PRN; 1 tab at onset and repeta in 2 hrs as needed Maximum 2 tabs qd venlafaxine ER 150 mg PO DAILY HPI Comments Details: 69y/o male with h/o cerebellar ataxia - diagnosed at age 1 , comes for follow up. He still has multiple falls . He came alone for the visit today . He is upset that he did not get his sumatriptan or urbrelvy .He had multiple falls and was concerned about a rebleed.But MRI brain from 06/2024 did not show any bleed. He has a motorized wheel chair but falls when he uses a walker to get to his wheelchair. He reports daily headaches, memory issues and feeling off balance. History from initial visit-He was followed up with neurologist all his life for his ataxia.He moved to [place] about 8 years ago from [place] and has been seeing Dr. Strickland . He has h/o migraines for many years.His migraines have decreased to 1-2 /week and responds to imitrex. He is on topiramate which helps his migraines. He had a MRI in Sep 2022 for increasing headaches and his cerebellar ataxia. It showed a subdural hematoma - he had right sided burrhole and evacuation done at [facility]. He was also started on Keppra 500mg bid. The headaches start in his neck and radiates to frontal, nausea, vomiting, photophobia, phonophobia, ? visual aura etc. He was seen by Neuro spine for cervical spondylosis and Dr. Parks- not a surgical candidate He did not bring his medication list and i am unclear if he is on levetiracetam [facility] Medical History Glaucoma Neurogenic claudication Spinal stenosis in cervical region Osteoporosis YUSRA and COPD overlap syndrome Diabetic neuropathy Meniere disease COPD (chronic obstructive pulmonary disease) Hypothyroidism Hyperlipidemia Malignant melanoma GERD (gastroesophageal reflux disease) GI bleed Lumbar spondylosis Diabetes CKD (chronic kidney disease) Cerebellar ataxia Carpal tunnel syndrome BPH (benign prostatic hyperplasia) PTSD (post-traumatic stress disorder) Schizoaffective disorder Bipolar 2 disorder Angina of effort Anxiety Subdural hematoma, chronic Cervicalgia Chronic migraine without aura Surgical History History of total right knee replacement Family History Mother Breast cancer Skin cancer Father Skin cancer Social History Household Members: Other Caregiver staying overnight: No Housing: Assisted Living Facility Do you presently have visiting nurse or other home services: Yes Alcohol intake: never Patient Tobacco Use Status: Never used Tobacco Review of Systems Neuro Reports Abnormal speech present Physical Exam Vital Signs: Last Vital Signs Pulse 81 04/28/25 13:33 BP 106/70 04/28/25 13:33 Pulse Ox 96 04/28/25 13:33 Oxygen Delivery Method Room Air 04/28/25 13:33 Const Orientation/consciousness: patient oriented x3 Eyes Pupils: Equal, round and reactive pupils present Neuro Other: slurred speech gait- off balance , ataxic with walker , weakness of lower extremities Neck- restricted range of motion with tightness in amos cervical muscles. General: patient oriented x3 and moves all extremities Cranial nerves: Yes Facial sensation intact/muscles of mastication intact, Yes Equal, round and reactive pupils present, Yes Bilaterally intact EOM present, Yes Nystagmus not present, Yes Normal facial strength present, Yes Midline tongue present and Yes Ability to bilaterally elevate shoulders present Speech: Abnormal speech present and Other speech findings present (Neuro) (dysarthria) Gait exam (Neuro): Ataxic gait present Coordination: other (dysmetria amos ) Assessment & Plan Assessment & Plan (1) Chronic migraine without aura: Code(s): G43.709 - Chronic migraine without aura, not intractable, without status migrainosus Category: Medical Qualifiers: Status migrainosus presence: without status migrainosus Intractability: intractable Qualified Code(s): G43.719 - Chronic migraine without aura, intractable, without status migrainosus (2) Cervicalgia: Comment: related to cervical spondylosis Code(s): M54.2 - Cervicalgia Category: Medical (3) Subdural hematoma, chronic: Comment: resolved Code(s): I62.03 - Nontraumatic chronic subdural hemorrhage Category: Medical Plan Continue imitrex- Ubrelvy 100mg as needed for migraine Continue topiramate 200mg qhs continue levetiracetam 500mg bid MRI brain - 07/10 no bleed Medications: New ubrogepant (Ubrelvy) 100 mg orally PRN; 1 tab at onset and repeta in 2 hrs as needed Maximum 2 tabs qd 14 tabs 6RF migraine sumatriptan succinate take 1 tab at onset of headache; if no relief, may repeat 1 tab after at least 2 hrs; max = 2 tabs/24 hrs PO 14 tabs 6RF Coding Level of Care Code Est Pt Level 4 (02611) Complex EM visit Add On G2211 Diagnoses Intractable chronic migraine without aura and without status migrainosus G43.719 Status migrainosus presence: without status migrainosus Intractability: intractable Cervicalgia M54.2 Subdural hematoma, chronic I62.03
--- OUTSIDE RECORDS SUMMARY | 2025-04-28 14:20 | XMS_ITS | Encounter Summary ---
Author Organization [facility] Address [address] [place] [address] Care Team Providers Care Pet Feeder Name Role Phone Aris Vang NP Primary Care Provider [phone] Encounter Details Date Type Department Care Team (Late st Contact Info) Description 01/27/2025 Health Home Core Service [facility] [address] [place] [address] Bibi Victoria RN Social History Tobacco Use Types Packs/Day Years Used Date Smoking Tobacco: Never Smokeless Tobacco: Never Comments:Never smoked tobacc o Alcohol Use Standard Drinks/Week Comments No 0 (1 standard drink = 0.6 oz pure alcohol) How often do you have a drink containing alcohol? Never Interpersonal Safety Answer Date Record ed Physical Abuse 11/19/2024 Verbal Abuse 11/19/2024 Sex and Gender Information Value Date Recorded Sex Assigned at Male 11/26/2024 4:19 PM EDT Legal Sex Male 5:00 AM EST Gender Identity Male 11/26/2024 4:19 PM EDT Sexual Orientation Straight 11/26/2024 4: 19 PM EDT documented as of this encounter Plan of Treatment Upcoming Encounters Date Type Department Care Team (Late st Contact Info) Description 05/21/2025 2:40 PM EDT Office Visit [facility] [address] [place] [id number] Jane Quiñones NP [address] [place] [address] [place] [id number] 05/28/2025 2:00 PM EDT Clinical Support Sivan JULES [address] [phone] 06/05/2025 12:45 PM EDT PACE External Visit Sivan JULES [address] [phone] 06/25/2025 11:00 AM EDT Clinical Support Sivan JULES [address] [phone] 07/27/2025 10:00 AM EST Office Visit Gastroenterology [facility] [address] [phone] Qian Hunter NP [address] [id number] 08/11/2025 11:30 AM EST Clinical Support Sivan JULES [address] [phone] 08/27/2025 9:40 AM EST Clinical Support Sivan JULES [address] [phone] documented as of this encounter Visit Diagnoses Not on filedocumented in this encounter Additional Health Concerns Infection Onset Date Last Indicated Resolved Time Respiratory Rule-Out 03/14/2025 03/14/2025 025 7:09 PM EDT COVID-19 Rule-Out 03/14/2025 03/14/2025 03/14/2025 7:09 PM EDT documented as of this encounter Care Teams Pet Feeder Relationship Specialty Start Date End Date Aris Vang NP [address] [place] [address] PCP - General PACE 11/18/24 documented as of this encounter
--- OUTSIDE RECORDS SUMMARY | 2025-04-28 14:20 | XMS_ITS | Encounter Summary ---
Author Organization [facility] Address [address] [place] [phone] Phone Care Team Providers Care Sales Operations Associate Name Role Phone Unknown, Unknown Primary Care Provider Anai gimenez Encounter Details Date Type Department Care Team (Late st Contact Info) Description 11/08/2022 Procedure Pass [facility] [address] [place] [id number] Social History Tobacco Use Types Packs/Day Years Used Date Smoking Tobacco: Never Assessed Intimate Partner Violence Answer Date R ecorded Are you denied basic needs s uch as food, clothing, or medical care? No 11/07/2022 In the past 12 months have y ou been in a relationship with a person who hurts, threatens, or tries to control you? No 11/07/2022 Are you denied basic needs s uch as food, clothing, or medical care? No 11/07/2022 In the past 12 months have y ou been in a relationship with a person who hurts, threatens, or tries to control you? No 11/07/2022 Sex and Gender Information Value Date Recorded Sex Assigned at Not on file Legal Sex Male 4:40 PM EST Gender Identity Not on file Sexual Orientation Not on file documented as of this encounter Plan of Treatment Not on file documented as of this encounter Visit Diagnoses Not on filedocumented in this encounter Care Teams Sales Operations Associate Relationship Specialty Start Date End Date Unknown, Unknown, PCP - General 11/07/22 documented as of this encounter Additional Source Comments The information contained in this document represents components of the legal health record. It is not the complete legal health record.[facility]
--- OUTSIDE RECORDS SUMMARY | 2025-04-28 14:20 | XMS_ITS | Clinical Summary ---
Author Organization [facility] Address [address] [place] [address] Care Team Providers Care Director Search Marketing Strategies Name Role Phone Taqueria Greenberg MD Primary Care Provider [phone] Allergies No known active allergies Medications Medication Sig Dispensed Refills Start Date End Date Status acetaminophen (TYLENOL EXTRA STRENGTH) 500 MG tablet Take 2 tablets (1,000 mg total) by mouth daily as needed. 0 Active albuterol 108 (90 Base) MCG/ACT inhaler Inhale 2 puffs into the lungs. 0 10/31/2023 Active atorvastatin (LIPITOR) tablet 40 mg Take 1 tablet (40 mg total) by mouth. 0 Active vitamin B-12 (CYANOCOBALAMIN) tablet 1000 mcg Take 1 tablet (1,000 mcg total) by mouth daily. 0 Active denosumab (PROLIA) injection 60 mg/mL Inject under the skin. 0 Active dicyclomine (BENTYL) 10 MG capsule Take 1 capsule (10 mg total) by mouth. 0 07/24/2017 Active enalapril (VASOTEC) 20 MG tablet Take 1 tablet (20 mg total) by mouth. 0 04/25/2017 Active ferrous gluconate (FERGON) 324 MG tablet Take 1 tablet (324 mg total) by mouth. 0 Active finasteride (PROSCAR) 5 MG tablet Take 1 tablet (5 mg total) by mouth every night at bedtime. 0 02/23/2017 Active Fluticasone-Umeclidin- Vilant 100-62.5-25 MCG/ACT AEPB Inhale 1 puff into the lungs. 0 10/31/2023 Active ipratropium-albuterol (DUO-NEB) 0.5-2.5 mg/mL nebulizer Inhale 3 mL into the lungs. 0 Active levETIRAcetam (KEPPRA) 500 MG tablet Take 1 tablet (500 mg total) by mouth 2 (two) times a day. 0 11/22/2022 Active levothyroxine (SYNTHROID) tablet 25 mcg Take 1 tablet (25 mcg total) by mouth. 0 Active Magnesium Oxide 400 MG CAPS Take by mouth. 0 Active metFORMIN (GLUCOPHAGE) tablet 1000 mg Take 1 tablet (1,000 mg total) by mouth 2 (two) times a day. 0 04/25/2017 Active OXcarbazepine (TRILEPTAL) 150 MG tablet Take 1 tablet (150 mg total) by mouth. 0 Active pantoprazole (PROTONIX) 40 MG tablet Take 1 tablet (40 mg total) by mouth. 0 Active pioglitazone (ACTOS) tablet 30 mg Take 1 tablet (30 mg total) by mouth daily. 0 07/20/2017 Active QUEtiapine (SEROquel) 50 MG tablet Take 1 tablet (50 mg total) by mouth. 0 06/11/2017 Active SUMAtriptan (IMITREX) 100 MG tablet Take 1 tablet (100 mg total) by mouth. 0 Active tamsulosin (FLOMAX) 0.4 MG CAPS Take 1 capsule (0.4 mg total) by mouth. 0 06/19/2017 Active topiramate (TOPAMAX) 25 MG tablet Take 1 tablet (25 mg total) by mouth. 0 01/08/2017 Active topiramate (TOPAMAX) 100 MG tablet Take 1 tablet (100 mg total) by mouth. 0 Active Active Problems Problem Noted Date Diagnosed Date Anemia, unspecified 04/18/2024 Social History Tobacco Use Types Packs/Day Years Used Date Smoking Tobacco: Never Assessed Sex and Gender Information Value Date Recorded Sex Assigned at Not on file Gender Identity Not on file Sexual Orientation Not on file Job Start Date Occupation Industry Not on file Not on file Not on file Last Filed Vital Signs Vital Sign Reading Time Taken Comments Blood Pressure 122/75 04/24/2024 9:45 AM EDT Pulse 60 04/24/2024 9:45 AM EDT Temperature 36.1 C (96.9 F) 04/24/2024 9:45 AM EDT Respiratory Rate 18 04/24/2024 9:45 AM EDT Oxygen Saturation 94% 04/24/2024 9:45 AM EDT Inhaled Oxygen Concentration - - Weight 73 kg (161 lb) 04/21/2024 10:12 AM EDT Height - - Body Mass Index - - Plan of Treatment Health Maintenance Due Date Last Done Comments Hepatitis C Screening 1955 COVID-19 Vaccine (#1) [birth year]09[birth year]1956 Depression Screening 1967 Preventative Health Evaluation 1973 Colon Cancer Screening (Colonoscopy) 2000 Shingrix-Zoster Vaccine (1 o f 2) 2005 Fall Risk Assessment 2020 Pneumococcal Vaccine (1 of 1 - PCV) 2020 Influenza Vaccine (#1) 2025 7, 08/23/2016 DTap / Tdap / Td (2 - Td or Tdap) 08/23/2026 08/23/2016 RSV Adult > 60+ Yrs or (1 - 1-dose 75+ series) 2030 Hepatitis B Vaccines Aged Out No long er eligible based on patient's age to complete this topic RSV Ped < 20 months Aged Out No longe r eligible based on patient's age to complete this topic Care Teams Director Search Marketing Strategies Relationship Specialty Start Date End Date Taqueria Greenberg MD PCP - General Rheumatology 04/21/24
--- OUTSIDE RECORDS SUMMARY | 2025-04-28 14:20 | XMS_ITS | Clinical Summary ---
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 Name Role Phone Taqueria Greenberg MD Primary Care Provider [phone] Allergies No known active allergies Medications acetaminophen (TYLENOL) 325 MG tablet Take by mouth every 6 (six) hours if needed for mild pain Active Ipratropium-Alb uterol (ALBUTEROL-IPRA TROPIUM IN) Inhale Active aluminum-magnes ium hydroxide 200-200 MG/5ML suspension Take by mouth every 6 (six) hours if needed for heartburn Active dicyclomine (BENTYL) 10 MG capsule Take 10 mg by mouth 4 (four) times a day (before meals and nightly) Active ferrous gluconate (FERGON) 324 (38 Fe) MG tablet Take 324 mg by mouth 1 (one) time each day with breakfast Active finasteride (PROSCAR) 5 MG tablet Take 5 mg by mouth 1 (one) time each day Do not crush, chew, or split. Active latanoprost (XALATAN) 0.005 % ophthalmic solution 1 drop every night Active meclizine (ANTIVERT) 25 MG tablet Take 25 mg by mouth 3 (three) times a day if needed for dizziness Active OXcarbazepine (TRILEPTAL) 300 MG tablet Take 300 mg by mouth in the morning and 300 mg in the evening. Active pantoprazole (PROTONIX) 40 MG EC tablet Take 40 mg by mouth 1 (one) time each day before breakfast Do not crush, chew, or split. Active pioglitazone (ACTOS) 30 MG tablet Take 30 mg by mouth 1 (one) time each day Active QUEtiapine (SEROquel) 200 MG tablet Take 200 mg by mouth every night Active rizatriptan (MAXALT) 10 MG tablet Take 10 mg by mouth 1 (one) time if needed for migraine May repeat in 2 hours if unresolved. Do not exceed 30 mg in 24 hours. Active tamsulosin (FLOMAX) 0.4 MG 24 hr capsule Take 0.4 mg by mouth 1 (one) time each day Active topiramate (TOPAMAX SPRINKLE) 25 MG capsule Take 25 mg by mouth in the morning and 25 mg in the evening. Do not crush or chew. . Active traZODone (DESYREL) 50 MG tablet Take 50 mg by mouth every night Active Fluticasone-Ume clidin-Vilant (Trelegy Ellipta) 100-62.5-25 MCG/INH aerosol powder Inhale Active venlafaxine XR (EFFEXOR-XR) 150 MG 24 hr capsule Take 150 mg by mouth 1 (one) time each day Do not crush or chew. Active Active Problems Problem Noted Date Diagnosed Date Chronic kidney disease, stage 2 (mild) 2 Type 2 diabetes mellitus wit h diabetic chronic kidney disease 08/08/2022 Social History Tobacco Use Types Packs/Day Years Used Date Smoking Tobacco: Never Smokeless Tobacco: Never Tobacco Cessation:Counseling Given: Not Answered Alcohol Use Standard Drinks/Week Comments Not Currently 0 (1 standard drink = 0.6 oz pur e alcohol) Sex and Gender Information Value Date Recorded Sex Assigned at Not on file Legal Sex Male 1:19 PM EDT Gender Identity Not on file Sexual Orientation Not on file Last Filed Vital Signs Vital Sign Reading Time Taken Comments Blood Pressure 124/80 12/12/2023 11:51 AM EDT Pulse 83 12/12/2023 11:36 AM EDT Temperature - - Respiratory Rate - - Oxygen Saturation 100% 12/12/2023 11:36 AM EDT Inhaled Oxygen Concentration - - Weight 79.8 kg (176 lb) 12/12/2023 11:36 AM EDT Height - - Body Mass Index - - Plan of Treatment Health Maintenance Due Date Last Done Comments Pneumococcal Vaccine: 50+ Years (1 of 2 - PCV) 1974 Colorectal Cancer Screening: Annual FOBT 2004 Colorectal Cancer Screening: Colonoscopy 2004 Colorectal Cancer Screening: Sigmoidoscopy 2004 Diabetes: Hemoglobin A1C 05/31/2022 04/10/2017 Diabetes: Ophthalmology Exam 05/31/2022 10/25/2016 Diabetes: Pedal Pulse Checked 05/31/2022 Diabetes: Sensory Foot Exam 05/31/2022 Diabetes: Visual Foot Exam 05/31/2022 Influenza Vaccine (#1) 2025 7, 08/23/2016 Hepatitis B Vaccine Aged Out No longe r eligible based on patient's age to complete this topic Insurance [address] [place], [place] [id number] [facility] [address] [place], [place] [id number] [facility] Care Teams 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
== END 2025-04-28 14:22 | disposition home or self-care (01) ==
LOC: HO.HSMS 13:31
PROVIDERS: PCP Internal Medicine Rheumatology; Visit Provider Psychiatry & Neurology Neurology
DX: G43.719 Chronic migraine without aura, intractable, without status migrainosus (principal); M54.2 Cervicalgia; I62.03 Nontraumatic chronic subdural hemorrhage
CPT/HCPCS: 99214; G2211

== ENCOUNTER → 2025-04-28 13:30 | Outpatient (BNVA) | payer OTHER, SELFPAY | PROVIDERS: PCP Internal Medicine Rheumatology; Visit Provider Psychiatry & Neurology Neurology | DX: G43.719 Chronic migraine without aura, intractable, without status migrainosus (principal); M54.2 Cervicalgia; I62.03 Nontraumatic chronic subdural hemorrhage | CPT/HCPCS: 99212 ==